=== PATIENT | male | born 2000 | race Caucasian/White ===

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

== ENCOUNTER → 2025-03-02 | Outpatient (CLI) | payer BC ==
[2025-03-02 15:39] VITALS: BP 131/83; PULSE 92; RESP 16; TEMP 98.1
--- NOTE | 2025-03-02 16:07 | P.SLEEP ---
History of Present Illness DATE: 03/02/2025 CONSULTATION/NEW PATIENT EVALUATION HISTORY OF PRESENT ILLNESS/SLEEP-WAKE EVALUATION: 24-year-old gentleman had be en evaluated in the sleep center for possible obstructive sleep apnea hypopnea syndrome. Patient recently had 2 home sleep apnea tests but for different reasons both of them was not successful. SLEEP SCHEDULE: Usually sleep schedule from 10 PM to 4 AM on weekdays and from midnight until noon on weekend. FALLING ASLEEP: Sometimes patient has difficulties to fall asleep, has TV set in bedroom. DURING SLEEP: Patient usually sleeps on the back and side position also on the chair. Positive history of sweating at night. No history of hypnogogical hallucinations, sleep paralysis, or cataplexy. DURING THE DAY/WAKE STATE: In the morning patient wake up tired, has difficulties to pay attention, falling asleep during the day, has problems with concentration. [place] sleepiness scale is significantly increased to 17. Patient may take 2 naps during the day. PAST MEDICAL HISTORY: Fatty liver. PAST SURGICAL HISTORY: Left meniscus repair and ACL transplant. MEDICATIONS: Vitamin D3. SOCIAL HISTORY: Please see below. FAMILY HISTORY: Please see below. REVIEW OF SYSTEMS: Loud snoring, sleepiness. No fevers. No double vision. No recent chest pain. No shortness of breath. No abdominal pain. No bleeding episodes. No blood in urine. No seizure episodes. PHYSICAL EXAMINATION: GENERAL: A pleasant patient without any distress. VITAL SIGNS:, Weight 328 pounds, BMI 40.8. HEENT: PERRLA, EOMI. Evaluation of oropharynx showed tongue protrudes midline, low position of soft palate Mallampati 4, retrognathia 2 mm, restriction of nasal breathing. NECK: Supple. No JVD. Thyroid is not palpable. 18 inches in circumference. LUNGS: Clear to percussion and to auscultation. Good air exchange. No wheezing or rhonchi. HEART: S1, S2 regular. No murmurs, gallops or rubs. ABDOMEN: Soft and nontender. Bowel sounds are present. No organomegaly appreciated. EXTREMITIES: No clubbing or cyanosis. MANAGER HOSPITALITY: Awake, alert, and oriented x3. Cranial nerves 2 to 7 intact. There is no fasciculation or atrophy noted. No focal deficits observed. ASSESSMENT: 1. Loud snoring, witnessed episodes of stop breathing during the sleep by girlfriend, extremely low position of soft palate Mallampati 4, retrognathia 2 mm, restriction of nasal breathing, sleepiness with high [place] Sleepiness Scale 17 obstructive sleep apnea hypopnea syndrome. 2. Obesity, BMI 40.8. 3. History of fatty liver. 4. Status post left meniscus repair with ACL transplant after sport trauma. PLAN: 1. Polysomnography for evaluation of patient's breathing during sleep. Recently to home sleep apnea tests which was done in another institution was not successful. 2. Following plan after reading sleep study 3. Preferable position during sleep on the side. 4. No driving if patient feels any sleepiness. Patient is aware of civil and criminal liability for unsafe driving. 5. Sleep hygiene with regular sleep time for at least 7.5-8 hours. 6. Watching and losing weight. Thank you very much for referring this patient for consultation. Sincerely, Vinicius Mason MD, PhD, FAASM. Diplomat of [place] [employer], Sleep Medicine Board by [place] [employer] [place] [employer] [facility] [place] cc: Faby Du MD Past Medical History Additional Past Medical History / Comment(s): fatty liver History of Any Multi-Drug Resistant Organisms: None Reported Past Surgical History: Orthopedic Surgery Additional Past Surgical History / Comment(s): acl transplant, meniscous repair, rods, plates & screws Past Anesthesia/Blood Transfusion Reactions: No Reported Reaction Past Psychological History: No Psychological Hx Reported Smoking Status: Vaper Past Alcohol Use History: Rare Past Drug Use History: Marijuana Additional Drug Use History / Comment(s): no longer use marijuana - Past Family History Mother Family Medical History: Diabetes Mellitus, Hypertension Father Family Medical History: Sleep Apnea/CPAP/BIPAP Additional Family Medical History / Comment(s): snoring Brother(s) Family Medical History: Sleep Apnea/CPAP/BIPAP Additional Family Medical History / Comment(s): snoring Medications and Allergies Home Medications Medication Instructions Recorded Confirmed Type Cholecalciferol (Vitamin D3) See Rx Instructions .ROUTE .COMPLEX 03/02/25 03/02/25 History [Vitamin D3 (1250 Mcg = 50,000 Iu)] Physical Exam Vitals: Vital Signs Temp Pulse Resp BP Pulse Ox 03/02/25 15:38 98.1 F 92 16 131/83 99 Sleep Note - Sleep Data ESS Total: 17 - Sleep Note Sleep Note: Temperature: 98.1 F Pulse Rate: 92 Respiratory Rate: 16 Blood Pressure: 131/83 SpO2: 99 Height: Weight: BMI: Neck Circumference: 18
== END ==
LOC: 3 N SLEEP 15:20
PROVIDERS: ATTEND Internal Medicine
DX: G47.33 Obstructive sleep apnea (adult) (pediatric) (principal); E66.01 Morbid (severe) obesity due to excess calories; Z68.41 Body mass index [BMI] 40.0-44.9, adult; Z86.39 Personal history of other endocrine, nutritional and metabolic disease; Z96.651 Presence of right artificial knee joint
CPT/HCPCS: 99202